=== PATIENT | male | born 1970 | race Caucasian/White ===

== ENCOUNTER 2024-09-30 16:47 | Emergency (ER) | payer SELFPAY ==
[2024-09-30 16:55] VITALS: BP 127/87
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
[2024-09-30] MEDS: MOTRIN 600 MG PO (18:51)
== END 2024-09-30 18:54 ==
LOC: EMR 16:47
PROVIDERS: EMERGENCY PHYSICIAN Emergency Medicine
DX: M54.50 Low back pain, unspecified (principal)
CPT/HCPCS: 99283; 72110